=== PATIENT | female | born 1980 | race Caucasian/White ===

== ENCOUNTER → 2018-04-10 | Outpatient (CLI) | payer OTHER ==
[2018-04-10 09:12] LABS: Basophils # (A) 0.1 k/uL (0-0.2); Basophils % (A) 1 %; Eosinophils # (A) 0.1 k/uL (0-0.7); Eosinophils % (A) 1 %; HCT 43.2 % (34.0-46.0); HGB 14.3 gm/dL (11.4-16.0); Lymphocytes # (A) 1.8 k/uL (1.0-4.8); Lymphocytes % (A) 14 %; MCH 26.6 pg (25.0-35.0); MCHC 33.1 g/dL (31.0-37.0); MCV 80.4 fL (80.0-100.0); Mean Platelet Volume 7.5; Monocytes # (A) 1.5 k/uL (0-1.0); Monocytes % (A) 12 %; Neutrophils # (A) 9.5 k/uL (1.3-7.7); Neutrophils % (A) 72 %; Platelet Count 305 k/uL (150-450); RBC 5.37 m/uL (3.80-5.40); RDW 13.9 % (11.5-15.5); WBC 13.2 k/uL (3.8-10.6)
== END | disposition home or self-care (01) ==
LOC: LABPAT 08:23
PROVIDERS: ATTEND Obstetrics & Gynecology
DX: Z01.812 Encounter for preprocedural laboratory examination (principal)
CPT/HCPCS: 85025

== ENCOUNTER 2018-04-13 05:35 | Day surgery (SDC) | payer OTHER ==
[~2018-04-13 05:35] MED LIST: LACTATED RINGERS 1,000 ML IV SCH; LIDOCAINE 1% 20 ML VIAL (10MG/ML) FOR IV START INTRADERMA PRN; Pre Op ABX Message 1 EACH MISC MISCELLANE ONE
[2018-04-13 06:32] LABS: Glucose,Whole Blood 138 mg/dL (75-99)
[2018-04-13] MEDS: ONDANSETRON 4 MG/2 ML VIAL IVP ONE ×2 (06:33→08:44)
[2018-04-13] MEDS ORDERED: BUPIVACAINE (PF) 0.25% 30 ML VIAL SQ ONE (07:41)
[2018-04-13] MEDS ORDERED: KETOROLAC 30 MG/ML 1 ML VIAL ONE (07:51)
[2018-04-13] MEDS ORDERED: fentaNYL (PF) 50 MCG/ML 2 ML AMP ONE (07:51)
[2018-04-13] MEDS ORDERED: SUCCINYLCHOLINE CHLORIDE 100 MG/5 ML SYR IV ONE (07:51)
[2018-04-13] MEDS ORDERED: MIDAZOLAM 2 MG/2 ML VIAL ONE (07:51)
[2018-04-13] MEDS ORDERED: PROPOFOL 10 MG/ML 20 ML VIAL IV ONE (07:51)
[2018-04-13 08:38] VITALS: TEMP 97.2
[2018-04-13] MEDS: HYDROmorphone 0.5 MG/0.5 ML SYRINGE IVP PRN ×2 (08:44→08:47)
--- NOTE | 2018-04-13 08:48 | P.OP ---
Date of Procedure: 04/13/18 Preoperative Diagnosis: Family planning Postoperative Diagnosis: Same with adhesion of left fallopian tube to anterior uterus Procedure(s) Performed: Laparoscopic tubal occlusion with Filshie clips and lysis of adhesion Anesthesia: MEJIA Surgeon: Austin Holden Estimated Blood Loss (ml): 5 Urine output (ml): 20 Pathology: none sent Condition: stable Disposition: same day Operative Findings: Left fallopian tube actually was scarred to the anterior uterus blunt dissection of that was made to free up for tubal ligation Description of Procedure: Patient was taken to the operating suite where a general anesthetic was found be adequate. She was prepped and draped in the normal sterile fashion and placed in dorsal lithotomy position. Initially a speculum was inserted into the vagina and anterior lip of the cervix identified and grasped with an Allis clamp. Was in sounded to 8 cm and a manipulator was inserted without difficulty. Instruments were then removed from the vagina and red rubber cath was used to drain the bladder of urine. Gloves were then changed and attention was turned to abdominal portion procedure where 2 mL of quarter percent Marcaine was injected periumbilically. Through this injected anesthetic a 5 mm skin incision was made and through this incision under direct visualization with an optical trocar and sleeve the camera was inserted. Once peritoneal placement was assured gas was left fully insufflate the abdomen and patient was then placed in steep Trendelenburg position. A second 8 mm skin incision was then made in the midline through her old scar and through this incision an 8 mm trocar and sleeve were inserted. Uterus was then elevated and observations the pelvis were noted. There was some scar tissue on the left fallopian tube was dissected free. Once this was accomplished Filshie clip was placed on both the right and left fallopian tubes approximately 2 cm from uterine cornu. Once these were placed with no bleeding noted in the mesosalpinx , instruments were removed and gas was allowed to expel from the abdomen. 5 deep breaths were provided during this process. Once completed 4-0 Vicryl was used to close incision subcuticularly and 7 mL of quarter percent Marcaine was injected around these incisions. Incidents were then removed from vagina sponge , lap, needle counts were all correct 2. Patient was then taken to the recovery room in stable and satisfactory condition. Plan - Discharge Summary Discharge Rx Participant: Yes New Discharge Prescriptions: New Ibuprofen [Motrin] 600 mg PO Q6HR PRN #30 tab PRN Reason: Pain No Action risperiDONE [RisperDAL] 1 mg PO HS metFORMIN HCL [Glucophage] 500 mg PO QAM Effexor (Unknown Dose) 1 tab PO HS Discharge Medication List Effexor (Unknown Dose) 1 tab PO HS 04/09/18 [History] metFORMIN HCL [Glucophage] 500 mg PO QAM 04/09/18 [History] risperiDONE [RisperDAL] 1 mg PO HS 04/09/18 [History] Ibuprofen [Motrin] 600 mg PO Q6HR PRN #30 tab 04/13/18 [Rx] Follow up Appointment(s)/Referral(s): Austin Holden DO [Doctor of Osteopathic Medicine] - 2 Weeks Activity/Diet/Wound Care/Special Instructions: No heavy lifting, limit stairs and driving, and pelvic rest. If any high temperatures, heavy bleeding, or severe pain call my office or report to the emergency room. No tub baths for 5-7 days, showering is fine. Discharge Disposition: HOME SELF-CARE
[2018-04-13 09:04] LABS: Glucose,Whole Blood 136 mg/dL (75-99)
[2018-04-13 09:37] VITALS: RESP 18
[2018-04-13 09:57] VITALS: BP 127/78; PULSE 90
== END 2018-04-13 10:10 | disposition home or self-care (01) ==
LOC: OR 05:35
PROVIDERS: ATTEND Obstetrics & Gynecology
DX: Z30.2 Encounter for sterilization (principal); N73.6 Female pelvic peritoneal adhesions (postinfective); E11.9 Type 2 diabetes mellitus without complications; F32.9 Major depressive disorder, single episode, unspecified; F17.210 Nicotine dependence, cigarettes, uncomplicated; Z79.84 Long term (current) use of oral hypoglycemic drugs; Z79.899 Other long term (current) drug therapy
CPT/HCPCS: 81025; 58671; J2250; J2405; J3010; J1885; J0330; J2704; J1170

== ENCOUNTER → 2018-09-30 | Outpatient (CLI) | payer OTHER ==
--- NOTE | 2018-09-30 17:48 | US ---
EXAMINATION TYPE: US kidneys/renal and bladder DATE OF EXAM: 09/30/2018 COMPARISON: NONE CLINICAL HISTORY: R32 Urine incontinence; N92.5 Irregular menses. Pt states urine incontinence EXAM MEASUREMENTS: Right Kidney: 10.4 x 5.0 x 4.6 cm Left Kidney: 12.5 x 5.0 x 5.7 cm Large pt body habitus, difficult to scan Right Kidney: No evidence of hydro, difficult to visualize upper and lower poles Left Kidney: Appeared wnl Bladder: wnl Bilateral Jets seen: No Cortical measured differentiation is maintained. There may be coarse echotexture to the liver suggesting hepatic steatosis or hepatocellular disease. IMPRESSION: Technologist reports somewhat limited scan. Imaging is not optimal due to patient body habitus. No ev ident hydronephrosis.
--- NOTE | 2018-09-30 17:53 | US ---
EXAMINATION TYPE: US transvaginal DATE OF EXAM: 09/30/2018 COMPARISON: NONE CLINICAL HISTORY: R32 Urine incontinence; N92.5 Irregular menses. Pt states irregular menses TECHNIQUE: Transvaginal (TV). Transvaginal sonographic images of the pelvis were acquired. Date of LMP: 09/20/2018 EXAM MEASUREMENTS: Uterus: 7.8 x 4.5 x 4.8 cm Endometrial Stripe: 0.5 cm Right Ovary: 2.5 x 2.0 x 2.2 cm Left Ovary: 2.3 x 1.8 x 2.1 cm 1. Uterus: Anteverted Heterogeneous, Nabothian cyst in cervix= 2.4 x 1.6 x 1.6 cm/ possible fibroi d ML/Lt= 1.5 x 1.3 x 1.5, lesion is hypoechoic within the myometrium cm/ C-sec scar visible 2. Endometrium: wnl 3. Right Ovary: wnl, follicles 4. Left Ovary: wnl, follicles 5. Bilateral Adnexa: wnl 6. Posterior cul-de-sac: wnl IMPRESSION: Suspect fibroid uterus, probable large nabothian cysts in the cervix
== END | disposition home or self-care (01) ==
LOC: RADUSWWP 15:44
PROVIDERS: ATTEND Family Medicine
DX: R32 Unspecified urinary incontinence (principal); N92.5 Other specified irregular menstruation
CPT/HCPCS: 76770; 76830

== ENCOUNTER → 2021-02-08 | Outpatient (CLI) | payer OTHER ==
--- NOTE | 2021-02-11 12:48 | MM ---
Reason for exam: screening (asymptomatic). Last mammogram was performed 5 years and 1 month ago. History: Patient had first child at age 34. Taking hormonal contraceptives beginning at age 34. Physical Findings: A clinical breast exam by your physician is recommended on an annual basis and results should be correlated with mammographic findings. MG Screening Mammo w CAD Bilateral CC and MLO view(s) were taken. XCCL view(s) were taken of the right breast. Prior study comparison: January 08, 2016, right breast MG work up mamm w CAD RT. December 28, 2015, bilateral MG screening mammo w CAD. The breast tissue is heterogeneously dense. This may lower the sensitivity of mammography. There is chronic nodularity in the right breast. No significant changes when compared with prior studies. ASSESSMENT: Benign, BI-RAD 2 RECOMMENDATION: Routine screening mammogram of both breasts in 1 year.
== END | disposition home or self-care (01) ==
LOC: RADMAMWWP 07:13
PROVIDERS: ATTEND Family Medicine
DX: Z12.31 Encounter for screening mammogram for malignant neoplasm of breast (principal)
CPT/HCPCS: 77067

== ENCOUNTER → 2023-07-17 | Outpatient (CLI) | payer OTHER ==
--- NOTE | 2023-07-20 10:04 | MM ---
Reason for Exam: Screening (asymptomatic). Last mammogram was performed 2 year(s) and 6 month(s) ago. Patient History: Menarche at age 12. First Full-Term at age 34. Late child-bearing (after 29). Premenopausal. Currently using Hormonal Contraceptives, starting at age 34. Last menstrual period: 07/04/2023 Risk Values: Arelis 5 year model risk: 1.1%. NCI Lifetime model risk: 13.1%. Prior Study Comparison: 12/28/2015 Bilateral Screening Mammogram, [facility]. 01/08/2016 Right Diagnostic Mammogram, [facility]. 02/08/2021 Bilateral Screening Mammogram, [facility]. Tissue Density: There are scattered areas of fibroglandular density. Findings: Analyzed By CAD. Benign-appearing lymph node in the right axilla stable. There is an adjacent 8 mm nodule is increased in size from prior exam. Still may represent a benign lymph node ultrasound suggested no suspicious calcifications or architectural distortion. Overall Assessment: Incomplete: need additional imaging evaluation, BI-RAD 0 Management: Diagnostic Mammogram of the right breast. . Patient should continue monthly self-breast exams. A clinical breast exam by your physician is recommended on an annual basis. This exam should not preclude additional follow-up of suspicious palpable abnormalities. Note on Arelis scores and lifetime risk: 1. A Arelis score greater than 3% is considered moderate risk. If this is the case, consider specialist referral to assess eligibility for a risk reducing agent. 2. If overall lifetime risk for the development of breast cancer is 20% or higher, the patient may qualify for future screening with alternating mammogram and breast MRI. Electronically signed and approved by: Efrain Dolan M.D. Radiologis
== END | disposition home or self-care (01) ==
LOC: RADMAMWWP 14:02
PROVIDERS: ATTEND Family Medicine
DX: Z12.31 Encounter for screening mammogram for malignant neoplasm of breast (principal)
CPT/HCPCS: 77067

== ENCOUNTER → 2023-10-27 | Outpatient (CLI) | payer OTHER | END | disposition home or self-care (01) | LOC: LABPRL 15:55 | PROVIDERS: ATTEND Family Medicine | DX: E11.9 Type 2 diabetes mellitus without complications (principal) | CPT/HCPCS: 80053; 80061; 83036; 84443 ==